=== PATIENT | female | born 1995 | race Caucasian/White ===

== ENCOUNTER 2018-07-18 07:48 | Emergency (ER) | payer SELFPAY ==
--- NOTE | 2018-07-18 10:13 | ULT ---
PELVIC ULTRASOUND: Date: 07/18/18 HISTORY: Vaginal bleeding. FINDINGS: Real-time imaging of the pelvis was obtained transabdominally. This shows a uterus measuring 4.6 x 5. 8 x 10.8 cm in size. The endometrium is thickened and heterogeneous, measures in the 2.0 cm range. Within the posterior fornix region of the vagina, it is an oblong shaped cystic area without evidence of a yolk sac or pole, although it has the appearance of a gestational sac, which could indica te an in progress. The right and left ovaries are fairly well visualized and normal in appearance. No evidence of any si gnificant free fluid. DOPPLER EVALUATION WITH SPECTRAL ANALYSIS: Normal flow is shown to the adnexa. IMPRESSION: Sac-like structure which is in the more posterior vagina region, raising the possibility of an aborti on in progress. I do not see a definite yolk sac or pole associated with this cystic structure. The endometrium is thickened and heterogeneous. POS: [facility]
== END 2018-07-18 09:47 | disposition home or self-care (01) ==
LOC: ERS 07:48
DX: O03.9 Complete or unspecified spontaneous abortion without complication (principal); F17.210 Nicotine dependence, cigarettes, uncomplicated
CPT/HCPCS: 76856; 90384; 93976; 96372